=== PATIENT | male | born 1960 | race Caucasian/White ===

== ENCOUNTER 2018-10-04 09:18 | Emergency (ER) | payer OTHER ==
[~2018-10-04] VITALS: Ht 172.7 cm; Wt 75.3 kg
[2018-10-04 09:23] VITALS: Ht 172.7 cm; Wt 75.3 kg
[2018-10-04 10:56] VITALS: BP 141/96
== END 2018-10-04 10:56 | disposition home or self-care (01) ==
LOC: ED 09:18
DX: A64 Unspecified sexually transmitted disease (principal); N34.2 Other urethritis; F41.9 Anxiety disorder, unspecified
CPT/HCPCS: J0696; J0698; J2001

== ENCOUNTER 2020-10-14 00:54 | Emergency (ER) | payer BC ==
[~2020-10-14] VITALS: Ht 172.7 cm; Wt 78.9 kg
[2020-10-14 01:01] VITALS: Ht 172.7 cm; Wt 78.9 kg
[2020-10-14 02:21] VITALS: BP 110/78
== END 2020-10-14 02:21 | disposition home or self-care (01) ==
LOC: ED 00:54
DX: L03.116 Cellulitis of left lower limb (principal)